=== PATIENT | female | born 1955 | race Caucasian/White ===

== ENCOUNTER 2024-08-14 06:06 | Day surgery (SDC) | payer BC, MEDICAID ==
[~2024-08-14] VITALS: Ht 165.1 cm; Wt 33.4 kg
[2024-08-14] VITALS (8 sets, daily range): BP systolic 88–103; BP diastolic 47–62; PULSE 64–101; RESP 11–20; TEMP 98; O2SAT 98–100
[~2024-08-14 06:06] MED LIST: DIAZ10TA4 PO; EREN70AU2 SQ; HYDR-3972 PO; LEVO25TA7 PO; LORA10TA7 PO; MONT-40 PO; ROSU5TAB43 PO; SUMA100T16 PO; TOP100T
[2024-08-14] MEDS ORDERED: BUPIVAcaine 2.5mg/ml inj 50ml vial (contains preservative) ONE (06:39)
[2024-08-14] MEDS ORDERED: triamcinolone acetonide 40mg/ml inj ONE (06:39)
[2024-08-14] MEDS ORDERED: morphine 2 MG/ML inj. syringe IV PRN (07:15)
[2024-08-14] MEDS ORDERED: ringers solution, lacted 1,000 ML IV SCH (07:15)
[2024-08-14] MEDS ORDERED: ondansetron/PF 4mg/2ml inj IV PRN (07:15)
[2024-08-14 07:27] LABS: BASOPHILS % (AUTO) 0.8 % (0-1); EOSINOPHILS # (AUTO) 0.1 X10'3 (0-0.9); EOSINOPHILS % (AUTO) 2.4 % (0-6); HEMOGLOBIN 11.8 g/dl (12.0-16.0); LYMPHOCYTES # (AUTO) 2.3 X10'3 (1.1-4.8); LYMPHOCYTES % (AUTO) 41.8 % (21-51); MEAN CORPUSCULAR HEMOGLOBIN 31.4 PG (27.0-31.0); MEAN CORPUSCULAR HGB CONC 32.7 g/dL (33.0-36.5); MEAN CORPUSCULAR VOLUME 95.9 FL (78-98); MEAN PLATELET VOLUME 8.2 FL (7.4-10.4); MONOCYTES # (AUTO) 0.5 X10'3 (0-0.9); MONOCYTES % (AUTO) 9.1 % (2-12); NEUTROPHILS # (AUTO) 2.6 X10'3 (1.8-7.7); NEUTROPHILS % (AUTO) 45.9 % (42-75); PLATELET COUNT 134 X10'3 (140-440); RED BLOOD COUNT 3.75 X10'6 (4.20-5.60); RED CELL DISTRIBUTION WIDTH 14.4 % (11.5-14.5); WHITE BLOOD COUNT 5.6 X10'3 (4.5-11.0)
[2024-08-14] MEDS ORDERED: fentaNYL/PF 50MCG/1 ML 2ML syringe ONE (07:34)
[2024-08-14] MEDS ORDERED: ROPIVAcaine 0.5% (5mg/ml) 30ml vial ONE (07:34)
[2024-08-14] MEDS ORDERED: midazolam 1 mg/ML 2ml injection ONE (07:34)
[2024-08-14] MEDS: ringers solution, lacted 1,000 ML IV SCH (07:35)
[2024-08-14] MEDS ORDERED: LIDOcaine 2% (20mg/ml) 5ml vial ONE (07:35)
[2024-08-14] MEDS ORDERED: dexamethasone sod phosphate 4mg/ml inj. ONE (07:35)
[2024-08-14] MEDS: famotidine 20mg tablet PO ONE (07:35)
[2024-08-14] MEDS ORDERED: propofol inj 20 ML IV ONE (07:35)
[2024-08-14] MEDS ORDERED: sevoflurane 250ml liquid IH ONE (07:37)
[2024-08-14 07:38] LABS: ALANINE AMINOTRANSFERASE 46 U/L (12-78); ALBUMIN 3.8 G/DL (3.4-5.0); ALBUMIN/GLOBULIN RATIO 1.6 (1.1-1.5); ALKALINE PHOSPHATASE 61 IU/L (46-116); ANION GAP 9 (8-16); ASPARTATE AMINO TRANSFERASE 34 U/L (10-37); BILIRUBIN,TOTAL 0.3 MG/DL (0.1-1.0); BLOOD UREA NITROGEN 11 MG/DL (7-18); BUN/CREATININE RATIO 9.6 (10.0-20.0); CALCIUM 8.5 MG/DL (8.5-10.1); CHLORIDE 111 MMOL/L (99-107); CREATININE 1.15 MG/DL (0.40-0.90); GLUCOSE 89 MG/DL (70-104); POTASSIUM 3.4 MMOL/L (3.5-5.1); SODIUM 143 MMOL/L (135-145); TOTAL CARBON DIOXIDE 22.6 MMOL/L (24-32); TOTAL PROTEIN 6.2 G/DL (6.4-8.2); eCRCL 25 ML/MIN; eGFR 47 ML/MIN
[2024-08-14] MEDS: morphine 4 MG/ML inj SYRINge IV PRN (08:22)
[2024-08-14] MEDS: HYDROcodone/acetaminophen 10/325mg tab PO PRN (08:39)
== END 2024-08-14 09:09 | disposition home or self-care (01) ==
LOC: PAS 06:06
PROVIDERS: ATTEND Orthopaedic Surgery
DX: T84.82XA Fibrosis due to internal orthopedic prosthetic devices, implants and grafts, initial encounter (principal); M25.561 Pain in right knee; G43.909 Migraine, unspecified, not intractable, without status migrainosus; E03.9 Hypothyroidism, unspecified; G89.18 Other acute postprocedural pain; Z90.89 Acquired absence of other organs; Z96.651 Presence of right artificial knee joint; Z98.891 History of uterine scar from previous surgery; Z90.49 Acquired absence of other specified parts of digestive tract; Z98.890 Other specified postprocedural states; Z79.890 Hormone replacement therapy; Z79.891 Long term (current) use of opiate analgesic; Z79.899 Other long term (current) drug therapy; Z88.5 Allergy status to narcotic agent; Z88.0 Allergy status to penicillin; Z88.6 Allergy status to analgesic agent; Z88.2 Allergy status to sulfonamides; Z88.8 Allergy status to other drugs, medicaments and biological substances; X58.XXXA Exposure to other specified factors, initial encounter
CPT/HCPCS: 27570; 36415; 64447; 80053; 82948; 85025; 93005; J1100; J2250; J2270; J2704; J2795; J3010; J3301; J3490; J7120; Z7506; Z7512; A4618